=== PATIENT | male | born 1945 | race Caucasian/White ===

== ENCOUNTER 2017-03-12 20:22 | Emergency (ER) | payer MEDICARE ==
[~2017-03-12] VITALS: Ht 182.9 cm; Wt 76.6 kg
[~2017-03-12 20:22] MED LIST: ADDE30XR PO; BUPR-175 PO; HYDR-2768 PO; HYDR-3533 PO; LISI-360 PO; LORA10TA PO; OMEP20CA5 PO; ZOVI800T13 PO; [UNRECOGNIZED DRUG - CODE]
[2017-03-12 20:25] VITALS: BP 119/76; PULSE 78; RESP 16; TEMP 98.6; O2SAT 96
[2017-03-12] MEDS ORDERED: PRIL20CA9 PO (20:37)
[2017-03-12] MEDS ORDERED: CLAR10CA3 PO (20:37)
[2017-03-12] MEDS ORDERED: HYDR25TA5 PO (20:37)
[2017-03-12] MEDS ORDERED: LISI10TA3 PO (20:37)
[2017-03-12] MEDS ORDERED: BUPR75TA PO (20:37)
[2017-03-12] MEDS ORDERED: [UNRECOGNIZED DRUG - OTHER] NASAL (20:37)
[2017-03-12] MEDS ORDERED: ADDE30XR PO (20:37)
[2017-03-12] MEDS ORDERED: TETANUS/DIPHTHERIA TOXOID ADULT 0.5 ML VIAL IM ONE (20:45)
[2017-03-12] MEDS ORDERED: CEPHALEXIN MONOHYDRATE 500 MG CAP PO ONE (20:45)
[2017-03-12] MEDS ORDERED: CEPH-460 PO (20:49)
--- NOTE | 2017-03-12 20:49 | PD ---
HPI Chief Complaint: Skin Problem Time Seen by Provider: 20:31 Travel History International Travel<30 days: No Contact w/Intl Traveler<30days: No Traveled to known affect area: No History of Present Illness HPI This 72-year-old male who noted an area of erythema on his left arm up to 3 hours ago. It is somewhat itchy. He gave blood 2 days ago and a venipuncture was in the left antecubital fossa. He is not aware of any fever or chills. PFSH Past Medical History ADHD: Yes Depression: Yes Cardiovascular Problems: Yes (BACTERIAL ENDOCARDITIS: AGE 7) GERD: Yes Hypertension: Yes Medical other: Yes ("BLOOD POISONING IN [employer]" PER PT) Respiratory: Yes (NASAL ALLERGIES) Tetanus Vaccination: > 5 Years Past Surgical History Oral Surgery: Yes Tonsillectomy: Yes Social History Alcohol Use: No Tobacco Use: No (QUIT 1983) Substance Use: No Allergies-Medications (Allergen,Severity, Reaction): Coded Allergies: Sulfa (Verified Adverse Reaction, Intermediate, Hives, 03/12/17) Reported Meds & Prescriptions Reported Meds & Active Scripts Active Reported Claritin (Loratadine) 10 Mg Cap 10 Mg PO DAILY Prilosec (Omeprazole) 20 Mg Cap 20 Mg PO DAILY 12 Hour Nasal Relief [place] (Oxymetazoline HCl) 0.05 % Spr 1 [place] NASAL DAILY Lisinopril 10 Mg Tab 10 Mg PO DAILY Hydrochlorothiazide 25 Mg Tab 20 Mg PO DAILY Bupropion HCl 75 Mg Tab 75 Mg PO DAILY Adderall Xr 24 HR (Amphetamine/Dextroamphetamine) 30 Mg Cap 30 Mg PO DAILY Once daily in the morning. Review of Systems General / Constitutional: No: Fever, Chills Eyes: No: Diploplia HENT: No: Vertigo, Lightheadedness Cardiovascular: No: Chest Pain or Discomfort Respiratory: No: Cough Gastrointestinal: No: Nausea Genitourinary: No: Urgency, Frequency Musculoskeletal: No: Myalgias, Arthralgias Skin: Positive Rash, Positive Itching Neurologic: No: Dizziness Hematologic/Lymphatic: No: Easy Bruising Physical Exam Narrative GENERAL: Well-developed male SKIN: Focused skin assessment warm/dry. On the left upper arm on the medial aspect is a area of erythema in a streak suggestive of lymphangitis. It is not raised. There is no area of infection noted on the lower arm HEAD: Atraumatic. Normocephalic. EYES: Pupils equal and round. No scleral icterus. No injection or drainage. ENT: No nasal bleeding or discharge. Mucous membranes pink and moist. NECK: Trachea midline. No JVD. CARDIOVASCULAR: Regular rate and rhythm. No murmur appreciated. RESPIRATORY: No accessory muscle use. Clear to auscultation. Breath sounds equal bilaterally. GASTROINTESTINAL: Abdomen soft, non-tender, nondistended. Hepatic and splenic margins not palpable. MUSCULOSKELETAL: No obvious deformities. No clubbing. No cyanosis. No edema. NEUROLOGICAL: Awake and alert. No obvious cranial nerve deficits. Motor grossly within normal limits. Normal speech. PSYCHIATRIC: Appropriate mood and affect; insight and judgment normal. Data Data Last Documented VS Vital Signs Date Time Temp Pulse Resp B/P Pulse Ox O2 Delivery O2 Flow Rate FiO2 03/12/17 20:25 98.6 78 16 119/76 96 MDM Medical Decision Making Medical Screen Exam Complete: Yes Emergency Medical Condition: Yes Medical Record Reviewed: Yes Differential Diagnosis Differential includes cellulitis, lymphangitis Narrative Course This appears to be a cellulitis. Etiology is not clear. He will be placed on Keflex. He does not appear toxic. He has been advised to return if fever or increasing rash in spite of the Keflex Diagnosis Primary Impression: Cellulitis of left upper arm Scripts Cephalexin (Keflex)500 Mg [id number] Mg PO Q6H 7 Days Ref 0 Prov:Mehran Li MD 03/12/17 Disposition: 01 DISCHARGE HOME Condition: Stable Mehran Li MD March 12, 2017 20:49
== END 2017-03-12 21:00 | disposition home or self-care (01) ==
LOC: PHED 20:22
DX: L03.114 Cellulitis of left upper limb (principal); F32.9 Major depressive disorder, single episode, unspecified; I10 Essential (primary) hypertension; F90.9 Attention-deficit hyperactivity disorder, unspecified type; Z23 Encounter for immunization
CPT/HCPCS: 90471; 90714